=== PATIENT | female | born 1985 ===

== ENCOUNTER 2017-06-02 10:13 | Inpatient (IN) | payer BC, OTHER ==
--- NOTE | 2017-06-02 10:44 | SOAPPROG ---
SOAP Progress Note Assessment/Plan: Assessment: 32 yo @ 40 1/7, questionable rupture of membranes Plan: 06/02/17 10:42 Amnisure pending, discussed if she was ruptured, would recommend pitocin for labor induction and ampicillin for gbs prophylaxis. Patient agrees to this plan. Subjective: 32 yo @ 40 1, questionable rupture of membranes-had leaking this morning. Objective: VSS toco irregular sve 3/80/-2 perineum dry nst 130s, mod variability, +accels ICD10 Worksheet Patient Problems: Problems Problem Status Onset Vaginal discharge Acute
[2017-06-02] MEDS ORDERED: EPSOM SALT 454 GM TP PRN (11:24)
[2017-06-02] MEDS ORDERED: IBUPROFEN 600 MG TAB PO PRN (11:24)
[2017-06-02] MEDS ORDERED: OXYTOCIN/RINGERS LACTATE 1,000 ML IV PRN (11:24)
[2017-06-02] MEDS ORDERED: OLIVE OIL 118 ML BTL MISC PRN (11:24)
[2017-06-02] MEDS ORDERED: TERBUTALINE SULFATE 1 MG/ML VIAL IV PRN (11:24)
[2017-06-02] MEDS ORDERED: AMPICILLIN SODIUM 2 GM in NS 100 ML IV ONE (11:24)
[2017-06-02] MEDS: LR 1,000 ML IV PRN ×2 (11:45→20:04)
[2017-06-02] MEDS ORDERED: OXYTOCIN/LR *LOW DOSE PROTOCOL IV SCH (12:00)
[2017-06-02 15:15] LABS: ABSOLUTE IMMATURE GRANULOCYTES 0.11 10^3/uL (0.00-0.10); ADD DIFF? NO; ADD MORPH? NO; ADD SCAN? NO; ATYPICAL LYMPHOCYTE FLAG 0 (0-99); FRAGMENT RBC FLAG 0 (0-99); HEMATOCRIT 38.4 % (38.0-47.0); HEMOGLOBIN 13.1 g/dL (12.6-16.3); LEFT SHIFT FLG 10 (0-99); LIPEMIA HEMOLYSIS FLAG 90 (0-99); MEAN CELL HEMOGLOBIN CONCENTR. 34.1 g/dL (32.4-36.7); MEAN CELL VOLUME 93.7 fL (81.5-99.8); MEAN PLATELET VOLUME 12.4 fL (8.7-11.7); PLATELET CLUMPS FLAG 0 (0-99); PLATELET COUNT 135 10^3/uL (150-400); RED CELL DISTRIBUTION WIDTH 13.9 % (11.5-15.2)
[2017-06-02] MEDS ORDERED: AMMONIA AROMATIC 1 EACH AMP IH ONE (15:37)
[2017-06-02] MEDS ORDERED: OLIVE OIL 118 ML BTL ONE (15:37)
[2017-06-02] MEDS ORDERED: LIDOCAINE 1% 300 MG/30 ML SDV ONE (15:37)
[2017-06-02] MEDS ORDERED: MISOPROSTOL 200 MCG TAB ONE (15:38)
[2017-06-02] MEDS ORDERED: TERBUTALINE SULFATE 1 MG/ML VIAL ONE (15:38)
[2017-06-02] MEDS ORDERED: OXYTOCIN 10 UNIT/ML VIAL ONE (15:38)
[2017-06-02] MEDS: AMPICILLIN SODIUM 1 GM in NS 100 ML IV SCH ×2 (16:06→20:03)
--- NOTE | 2017-06-02 18:21 | OBPROG ---
OBG Labor Progress Note Assessment/Plan: Assessment: 32 yo @ 40 1/7, rupture of membranes Plan: Gbs positive, sp 2 dose abx. Pitocin for PROM. Discussed occasional tachycardia, recommend oxygen and left lateral tilt. FWB overall reassuring. 06/02/17 18:18 Subjective: 32 yo @ 40 1/7, rupture of membranes-feels light contractions. Objective: 06/02/17 14:30 Patient ABO/Rh A POSITIVE 06/02/17 13:35 VSS - SVE Dilation (cm): 4 Effacement (%): 80 Station: -3 [place] Current Contraction Pattern: Regular FHR (bpm): 170 FHR Pattern Variability: Moderate FHR Category: 2 Membranes: AROM Amniotic Fluid Color: Clear - Procedures Non-surgical Procedures: Amniotomy (arom clear of forebag) Oxytocin Orders Assessment - Pre-Induction/Augmentation Assessment Gestational Age: 40 week(s) and 1 day(s) ICD10 Worksheet Patient Problems: Problems Problem Status Onset Vaginal discharge Acute
--- NOTE | 2017-06-02 22:09 | OBPROG ---
OBG Labor Progress Note Assessment/Plan: Assessment: 32 yo @ 40 1/7, rupture of membranes, in active labor, coping well Plan: Gbs positive, sp 2 doses abx. Pitocin for PROM/now in active labor/transition. well being reassuring, tachycardia resolved. Expect . 06/02/17 22:07 Subjective: 32 yo @ 40 1/7, rupture of membranes, in active labor, coping well-feels pressure. Objective: 06/02/17 14:30 Patient ABO/Rh A POSITIVE 06/02/17 13:35 VSS - SVE Dilation (cm): 9 Effacement (%): 100 Station: -2 [place] Current Contraction Pattern: Regular FHR (bpm): 140 FHR Pattern Variability: Moderate FHR Category: 2 Membranes: AROM Amniotic Fluid Color: Clear - Procedures Non-surgical Procedures: Amniotomy (arom clear of forebag) Oxytocin Orders Assessment - Pre-Induction/Augmentation Assessment Gestational Age: 40 week(s) and 1 day(s) ICD10 Worksheet Patient Problems: Problems Problem Status Onset Vaginal discharge Acute
[2017-06-03] MEDS ORDERED: HYDROCORTISONE 0.5% CREAM TP PRN (00:02)
[2017-06-03] MEDS ORDERED: SIMETHICONE 80 MG TAB CHEW PO PRN (00:02)
[2017-06-03] MEDS ORDERED: ACETAMINOPHEN 325 MG TAB PO PRN (00:02)
--- NOTE | 2017-06-03 00:05 | OBDEL ---
Info Type: Vaginal GBS+: Yes Antibiotic Used for + GBS: Ampicillin Number of Antibiotic Doses Given: 3 Indications for Delivery: SROM Vaginal Delivery - Labor and Delivery Onset of Contractions Date: 06/02/17 Onset of Contractions Time: 05:00 Onset of Contractions Type: Induced Rupture of Membranes Date: 06/02/17 Rupture of Membranes Time: 05:00 Rupture of Membranes Type: Premature Amniotic Fluid Color: Clear Dilation Complete Date: 06/02/17 Dilation Complete Time: 23:15 Placenta Delivery Date: 06/02/17 Placenta Delivery Time: 23:26 Total Hours of Labor: 18 Non-surgical Procedures: Amniotomy (arom clear of forebag) Laceration: Other (Specify) (right periurethral) Repair: 4-0, Vicryl Vaginal Sponge Count Correct: Yes Vaginal Needle Count Correct: Yes Vaginal Sweep Performed: No EBL: 300 ml Delivery Events: Nuchal Cord - Medications Labor Augmentation/Induction Methods Used: Pitocin Labor Augmentation/Induction Indication: Other (Specify) (PROM) [place] Data [place] Delivery Date: 06/02/17 Delivery Time: 23:22 [place]IO: 06/01/17 Gestational Age: 40 week(s) and 2 day(s) Sex of Infant: Female Score (1 Min): 8 Score (5 Min): 9 ICD10 Worksheet Patient Problems: Problems Problem Status Onset Vaginal discharge Acute
--- NOTE | 2017-06-03 00:06 | OBGCSDC ---
General Delivery Information - General Info : 1 Para: 0 Abortions: 0 Delivery Physician/CNM: Kelly Yao Admission Date: 06/02/17 Labs: Patient ABO/Rh A POSITIVE 06/02/17 13:35 Hct 38.4 % (38.0-47.0) 06/02/17 14:30 Vaginal - Diagnosis Labor: Induced Rupture of Membranes Type: Premature Amniotic Fluid Color: Clear Laceration: Other (Specify) (right periurethral) Repair: 4-0, Vicryl Delivery Events: Nuchal Cord - Operations/Procedures Non-surgical Procedures: Amniotomy (arom clear of forebag) - Hospital Course Antepartum: none Intrapartum: none - Delivery Type: Vaginal Non-surgical Procedures: Amniotomy (arom clear of forebag) EBL: 300 ml Data [place] Delivery Date: 06/02/17 Delivery Time: 23:22 LEONCIO: 06/01/17 Gestational Age: 40 week(s) and 2 day(s) Sex of Infant: Female Score (1 Min): 8 Score (5 Min): 9
[2017-06-03] MEDS: AMPICILLIN SODIUM 1 GM in NS 100 ML IV SCH ×2 (05:41→08:27)
[2017-06-03 10:26] LABS: % IMMATURE GRANULYOCYTES 0.8 % (0.0-1.1); ABSOLUTE IMMATURE GRANULOCYTES 0.13 10^3/uL (0.00-0.10); ADD DIFF? NO; ADD MORPH? NO; ADD SCAN? NO; ATYPICAL LYMPHOCYTE FLAG 10 (0-99); FRAGMENT RBC FLAG 0 (0-99); HEMOGLOBIN 10.5 g/dL (12.6-16.3); LEFT SHIFT FLG 20 (0-99); LIPEMIA HEMOLYSIS FLAG 90 (0-99); MEAN CELL HEMOGLOBIN 32.7 pg (27.9-34.1); MEAN CELL VOLUME 93.5 fL (81.5-99.8); MEAN PLATELET VOLUME 12.2 fL (8.7-11.7); PLATELET CLUMPS FLAG 0 (0-99); PLATELET COUNT 119 10^3/uL (150-400); RED BLOOD CELL COUNT 3.21 10^6/uL (4.18-5.33); RED CELL DISTRIBUTION WIDTH 14.1 % (11.5-15.2)
--- NOTE | 2017-06-03 10:43 | OBPP ---
Progress Note Assessment/Plan: Assessment: Pt is a 32 y/o PPD#1 s/p - doing well Plan: 1) Continue routine PP care 2) Thrombocytopenia - mild, platelets 135K to 119K. No other symptoms. No PIH symptoms, BP normal. Will recheck tomorrow. 3) A+/RI 4) Likely discharge home tomorrow. 06/03/17 10:41 Subjective: Pt has no complaints, feeling well. No PIH symptoms. Objective: 06/03/17 10:15 Patient ABO/Rh A POSITIVE 06/02/17 13:35 Temp Pulse Resp BP Pulse Ox 36.7 C 78 13 107/63 94 06/03/17 08:30 06/03/17 08:30 06/03/17 08:30 06/03/17 08:30 06/03/17 08:30 Uterine Position/Fundal Height: Umbilicus -1 Uterine Tone: Firm
[2017-06-03] MEDS: DOCUSATE SODIUM 100 MG CAP PO PRN (16:32)
[2017-06-03 20:47] VITALS: O2SAT 96
[2017-06-04] MEDS: DOCUSATE SODIUM 100 MG CAP PO PRN (08:33)
--- NOTE | 2017-06-04 08:34 | OBGCSDC ---
General Delivery Information - General Info : 1 Para: 1 Abortions: 0 Delivery Physician/CNM: Kelly Yao Admission Date: 06/02/17 Labs: Patient ABO/Rh A POSITIVE 06/02/17 13:35 Hct 30.0 % (38.0-47.0) L 06/03/17 10:15 Vaginal - Diagnosis Labor: Induced Presentation at Delivery: Vertex Rupture of Membranes Type: Premature Amniotic Fluid Color: Clear Laceration: Other (Specify) (right periurethral) Repair: 4-0, Vicryl Delivery Events: Nuchal Cord - Operations/Procedures Non-surgical Procedures: Amniotomy (arom clear of forebag) L&D Analgesia/Anesthesia Type: None - Delivery Type: Vaginal Non-surgical Procedures: Amniotomy (arom clear of forebag) EBL: 300 ml Data [place] Delivery Date: 06/02/17 Delivery Time: 23:22 LEONCIO: 06/01/17 Gestational Age: 40 week(s) and 3 day(s) Sex of Infant: Female Score (1 Min): 8 Score (5 Min): 9 Discharge Information - Discharge Information Discharge Medications: Iron, Ibuprofen, Vitamins Condition: Good Instruction/Follow Up: Six Weeks Discharge Physician/CNM: Rosa Aragon
[2017-06-04 08:38] VITALS: BP 119/79; PULSE 75; RESP 14; TEMP 97.1
[2017-06-04] MEDS ORDERED: FERROUS SULFATE 325 MG TAB PO SCH (09:00)
== END 2017-06-04 12:45 | disposition home or self-care (01) | DRG 775 ==
LOC: FLD 10:13 → OBSVTOIN 10:13 → FOB 06-03 02:18
PROVIDERS: ADMIT Obstetrics & Gynecology; ATTEND Obstetrics & Gynecology
PROC: 10907ZC Drainage of Amniotic Fluid, Therapeutic from Products of Conception, Via Natural or Artificial Opening (ICD-10-PCS; principal; 2017-06-02)
PROC: 10E0XZZ Delivery of Products of Conception, External Approach (ICD-10-PCS; principal; 2017-06-02)
PROC: 3E033VJ Introduction of Other Hormone into Peripheral Vein, Percutaneous Approach (ICD-10-PCS; principal; 2017-06-02)
PROC: 0UQMXZZ Repair Vulva, External Approach (ICD-10-PCS; principal; 2017-06-02)
PROC: 3E03029 Introduction of Other Anti-infective into Peripheral Vein, Open Approach (ICD-10-PCS; principal; 2017-06-02)
DX: O42.02 Full-term premature rupture of membranes, onset of labor within 24 hours of rupture (principal); O69.89X0 Labor and delivery complicated by other cord complications, not applicable or unspecified; O71.82 Other specified trauma to perineum and vulva; O99.820 Streptococcus B carrier state complicating pregnancy; O99.89 Other specified diseases and conditions complicating pregnancy, childbirth and the puerperium; D69.6 Thrombocytopenia, unspecified; Z67.10 Type A blood, Rh positive; Z3A.40 40 weeks gestation of pregnancy; Z37.0 Single live birth
CPT/HCPCS: J0290; J2590; J3105